=== PATIENT | female | born 1985 | race Caucasian/White ===

== ENCOUNTER → 2021-06-19 | Emergency (ER) | payer SELFPAY ==
[~2021-06-19] VITALS: Ht 157.5 cm; Wt 72.6 kg
[~2021-06-19] MED LIST: CASIRIVIMAB/IMDEVIMAB 10 ML in SODIUM CHLORIDE 0.9% 100 ML IV ONE; SODIUM CHLORIDE 0.9% 100 ML ONE
== END | disposition home or self-care (01) ==
LOC: ER 19:14
DX: U07.1 COVID-19 (principal); R53.83 Other fatigue; I10 Essential (primary) hypertension; F17.210 Nicotine dependence, cigarettes, uncomplicated
CPT/HCPCS: 71045; 99284; J7050; U0002